=== PATIENT | male | born 1980 | race Caucasian/White ===

== ENCOUNTER → 2021-03-27 | Outpatient (CLI) | payer OTHER ==
[2021-03-27 16:18] LABS: D-DIMER 0.56 mg/L FEU (0.15-0.50)
== END ==
LOC: LAB 15:42
PROVIDERS: Nurse Practitioner Family
DX: R06.02 Shortness of breath (principal)

== ENCOUNTER → 2024-07-17 | Outpatient (REF) | payer OTHER, BC | LOC: LAB 19:32 | DX: R05.9 Cough, unspecified (principal); Z20.822 Contact with and (suspected) exposure to COVID-19 ==